=== PATIENT | female | born 1930 | race Caucasian/White ===

== ENCOUNTER → 2016-06-10 | Outpatient (CLI) | payer OTHER ==
[~2016-06-10] MED LIST: ADVIL100 M2 PO; ASPIRIN EC81 M1 PO; ATIVAN1 MG PO; COLACE100 MG PO; CYMBALTA30 MG PO; DILTIAZEM ER120 M1 PO; HYDROCHLOROTHIA25 M1 PO; K-DUR10 MEQ PO; LASIX 20 MG TAB20 MG PO; NITROSTAT0.4 M1; NORCO 5-325 TA1 EACH PO; PROPRANOLOL 1010 M1 PO; PROPRANOLOL 1010 MG PO; SINEMET 25/1001 TAB PO; ULTRAM 50MG TAB50 MG PO
== END ==
LOC: RAD 15:43
DX: R06.02 Shortness of breath (principal); J44.9 Chronic obstructive pulmonary disease, unspecified

== ENCOUNTER 2017-02-07 20:38 | Inpatient (IN) | payer OTHER ==
[~2017-02-07] VITALS: Ht 152.4 cm; Wt 31.5 kg
--- NOTE | ~2017-02-07 | DEA ---
[facility] [place] [address] SUMMARY Name: JAMAAL WARD Room #: 453-P [facility] IN M.R.#: [id number] Admission: 02/08/17 Attend Phys: Bryon Quezada DO Discharge: 02/09/17 Date of : 32 Report #: [id number] THIS REPORT FOR: //name// CC: Gregoria Fan DATE OF SERVICE: 02/09/2017 DATE AND TIME OF : 02/09/2017 at 2257. HISTORY OF PRESENT ILLNESS: The patient is an 86-year-old female who presented to [facility] on 02/07/2017 with worsening shortness of air. She was found to be in the 70s on room air, basilar infiltrates found on x-ray, moderate pleural effusion noted. Normally sees Dr. Valadez who recommended comfort care, which is what the patient's son was amenable to. She has a history of Parkinson disease. Additionally, had worsening dysphagia recently as well as worsening ADLs. Echo recently had shown EF of 25% with grade 3 diastolic dysfunction. The son who is the DPOA did decide on comfort/hospice care. She was started on a morphine drip to keep her comfortable and she did pass away at 2257 on 02/09/2017. The body was released to her home with the family. 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 <ELECTRONICALLY SIGNED> By: Bryon Quezada DO 02/12/17 1533 [id number] 1432 Bryon Quezada DO /nt
--- NOTE | ~2017-02-07 | EKG ---
[address] [address] ELECTROCARDIOGRAM REPORT Name: EDJAMAAL Room #: 453-P ADM IN M.R.#: [id number] Admission: 02/08/17 Attend Phys: Bryon Quezada DO Discharge: Date of : 32 Report #: [id number] THIS REPORT FOR: //name// [facility] ED Test Date: 2017-02-07 Test Time: 21:21:14 Pat Name: JAMAAL WARD Department: Room: [facility] Gender: F [employer]: [id number] : [id number] Requested By: Alva Jurado Order Number: [id number] MD: Melchor Rodriguez Measurements Intervals [place] Rate: 72 P: 36 DC: 221 QRS: -1 QRSD: 73 T: 96 QT: 351 QTc: 385 Interpretive Statements Sinus rhythm Atrial premature complexes Prolonged DC interval Probable anterolateral infarct, recent Compared to ECG 05/22/2016 02:42:17 Atrial premature complex(es) now present Criteria for anterior infarct now present Electronically Signed On 02-08-2017 16:24:25 CDT by Melchor Rodriguez [email or web address] <ELECTRONICALLY SIGNED> By: Melchor Rodriguez MD, [facility] 02/08/17 1624 20 20 Melchor Rodriguez MD, [facility] /EPI
--- NOTE | ~2017-02-07 | 2DMMODE ---
[facility] [address] [place] [address] 2 D/M-MODE ECHOCARDIOGRAM Name: EDJAMAAL Room #: 453-P ADM IN M.R.#: [id number] Admission: 02/08/17 Attend Phys: Bryon Quezada, Discharge: Date of : 32 Date of Service: 02/08/17 1001 Report #: [id number] THIS REPORT FOR: //name// APPROVED REPORT Study performed: 02/08/2017 08:37:59 EXAM: Comprehensive 2D, Doppler, and color-flow Echocardiogram Patient Location: Bedside Room #: [facility] Status: routine BSA: 1.20 HR: 74 bpm BP: 119/56 mmHg Other Information Study Quality: Good Indications Sepsis Dyspnea Hypertension/HDD 2D Dimensions RVDd: 37.83 mm LVEF(%): 42.59 (>50%) IVSd: 10.34 (7-11mm) LVOT Diam: 16.78 (18-24mm) LVDd: 34.40 mm PWd: 10.00 (7-11mm) Ascending Ao: 31.20 (22-36mm) LVDs: 27.40 (25-40mm) Aortic Root: 24.64 mm IVC: 20.00 mm Cruz's LVEF: 42.59 % Volumes Left Atrial Volume (Systole) Single Plane 4CH: 62.86 mL Single Plane 2CH: 58.14 mL LA ESV Index: 56.00 mL/m2 Aortic Valve AoV Peak Edd.: 1.14 m/s AO Peak Gr.: 5.21 mmHg LVOT Max P.11 mmHg LVOT Max V: 0.73 m/s ADEOLA Vmax: 1.41 cm2 AI Vmax: 4.12 m/s AI [place]: 3.16 m/s2 AI PHT: 378.53 ms [facility] [email or web address] [address] 2 D/M-MODE ECHOCARDIOGRAM Name: JAMAAL WARD Room #: 453-P [facility] IN M.R.#: [id number] Admission: 02/08/17 Attend Phys: Bryon Quezada, Discharge: Date of : 32 Date of Service: 02/08/17 1001 Report #: [id number] Mitral Valve E/A Ratio: 3.1 MV Decel. Time: 154.04 ms MV E Max Edd.: 1.05 m/s MV A Edd.: 0.34 m/s MV PHT: 44.67 ms IVRT: 101.50 ms Pulmonary Valve PV Peak Edd.: 0.69 m/s PV Peak Gr.: 1.91 mmHg Pulmonary Vein P Vein S: 0.20 m/s P Vein A: 0.22 m/s P Vein D: 0.45 m/s P Vein A Dur.: 156.9 msec P Vein S/D Ratio: 0.44 Tricuspid Valve TR Peak Edd.: 4.18 m/s TR Peak Gr.: 69.81 mmHg PA Pressure: 80.00 mmHg Left Ventricle The left ventricle is normal size. Hypokinesis of septum, anterolateral wall, and apex. There is normal left ventricular wall thickness. Left ventricular ejection fraction is severely decreased. LVEF is 25-30%. Grade III diastolic dysfunction Right Ventricle The right ventricle is normal size. The right ventricular systolic function is normal. Atria Left atrium is dilated. The right atrium size is normal. Aortic Valve Aortic valve is moderately calcified. Mild to moderate aortic regurgitation. There is no aortic valvular stenosis. Mitral Valve Mild mitral annular calcification Moderate mitral regurgitation. No evidence of mitral valve stenosis. Tricuspid Valve The tricuspid valve is normal in structure. There is no tricuspid valve stenosis. There is mild to moderate tricuspid regurgitation. [facility] [address] [place] [address] 2 D/M-MODE ECHOCARDIOGRAM Name: JAMAAL WARD Room #: 453-P [facility] IN [facility]#: [id number] Admission: 02/08/17 Attend Phys: Bryon Quezada, Discharge: Date of : 32 Date of Service: 02/08/17 1001 Report #: [id number] The right atrial pressure is estimated at 10 mmHg. There is severe pulmonary hypertension. Pulmonic Valve The pulmonary valve is normal in structure. Trace to mild pulmonic regurgitation. Great Vessels The aortic root is normal in size. IVC is dilated and collapses >50% with inspiration. Pericardium Trace pericardial effusion. <Conclusion> Left ventricular ejection fraction is severely decreased. Hypokinesis of septum, anterolateral wall, and apex. LVEF is 25-30%. Grade III diastolic dysfunction Left atrium is dilated. Aortic valve is moderately calcified. No aortic valvular stenosis. Mild to moderate aortic regurgitation. Mild mitral annular calcification. Mild to moderate mitral regurgitation. Pulmonary artery pressure of 80mmHg Trace pericardial effusion <ELECTRONICALLY SIGNED> By: Melchor Rodriguez MD, FACC 02/08/17 1001 1001 1001 Melchor Rodriguez MD, FACC /INF
[2017-02-07 20:39] VITALS: BP 134/70
[2017-02-07 20:52] LABS: ABSOLUTE NEUTROPHILS 11.3 thou/uL (1.4-8.2); BASOPHILS 0.7 % (0.0-2.0); EOSINOPHILS 0.2 % (0.0-3.0); HEMOGLOBIN 10.7 gm/dL (12.0-15.0); LYMPHOCYTES 11.9 % (24.0-44.0); MCH 30.2 pg (26.0-34.0); MCHC 33.6 g/dL (28.0-37.0); MCV 90.1 fL (80.0-100.0); MONOCYTES 4.8 % (1.0-8.0); PLATELET COUNT 440 thou/uL (150-400); POLYS 82.4 % (36.0-66.0); RBC 3.55 mil/uL (4.20-5.00); RDW 13.9 % (10.5-14.5); WBC 13.7 thou/uL (4.0-11.0)
[2017-02-07 20:56] LABS: ABG SAMPLE TYPE ARTERIAL; BE(vivo) -5.9 mmol/L (-2 to +3); HCO3 18.4 mmol/L (22.0-26.0); LACTATE 5.42 mmol/L (0.5-2.0); MANUAL DIFF NO; O2(CT) 12.8 mL/dL (15.0-23.0); O2Hb 79.9 % (92.0-98.0); PCO2 32.1 mmHg (35.0-45.0); pH 7.376 (7.360-7.450); sO2 84.3 % (92.0-98.0); tCO2 19.4 mmol/L (24.0-30.0)
[2017-02-07 20:57] LABS: STICK SITE R.BRACHIAL
[2017-02-07 21:02] LABS: CALCIUM 9.1 mg/dL (8.5-10.1); CREATININE 1.1 mg/dL (0.6-1.0); POTASSIUM 4.1 mmol/L (3.5-5.1)
[2017-02-07 21:11] LABS: TROPONIN-I 0.23 ng/mL (<0.04-0.07)
[2017-02-07 22:10] LABS: ABG SAMPLE TYPE ARTERIAL; BE(vivo) -0.3 mmol/L (-2 to +3); HCO3 24.5 mmol/L (22.0-26.0); LACTATE 3.29 mmol/L (0.5-2.0); O2(CT) 15.3 mL/dL (15.0-23.0); O2Hb 94.8 % (92.0-98.0); PCO2 40.7 mmHg (35.0-45.0); PO2 86.7 mmHg (80.0-100.0); pH 7.398 (7.360-7.450); sO2 96.6 % (92.0-98.0); tCO2 25.8 mmol/L (24.0-30.0)
[2017-02-07 22:11] LABS: ABG COMMENT V60 14/6 10 100%; Pressure Support 8 cm H20; STICK SITE R.BRACHIAL
[2017-02-08] VITALS (7 sets, daily range): BP systolic 112–120; BP diastolic 50–82
[2017-02-09 04:42] VITALS: BP 135/76
[2017-02-09 07:18] VITALS: BP 148/48
[2017-02-09 11:22] VITALS: BP 95/56
[2017-02-09 19:28] VITALS: BP 62/34
== END 2017-02-09 22:57 | DRG 177 ==
LOC: ER 20:38 → 4W 02-08 00:17 → EROBS 02-08 00:17 → 4W 02-08 01:51
PROVIDERS: Emergency Medicine
PROC: 5A09357 Assistance with Respiratory Ventilation, Less than 24 Consecutive Hours, Continuous Positive Airway Pressure (ICD-10-PCS; principal; 2017-02-08)
DX: J69.0 Pneumonitis due to inhalation of food and vomit (principal); J96.01 Acute respiratory failure with hypoxia; I50.43 Acute on chronic combined systolic (congestive) and diastolic (congestive) heart failure; I11.0 Hypertensive heart disease with heart failure; J18.9 Pneumonia, unspecified organism; G20 Parkinson's disease; I48.91 Unspecified atrial fibrillation; Z66 Do not resuscitate; F41.9 Anxiety disorder, unspecified; H35.30 Unspecified macular degeneration; Z51.5 Encounter for palliative care; F32.9 Major depressive disorder, single episode, unspecified; Z98.42 Cataract extraction status, left eye; Z98.41 Cataract extraction status, right eye
CPT/HCPCS: 10045